=== PATIENT | male | born 1995 | race Caucasian/White ===

== ENCOUNTER → 2017-10-07 | Outpatient (CLI) | payer BC ==
[~2017-10-07] MED LIST: ACET300T3 PO; GADAVIST IV PRN
--- NOTE | 2017-10-07 10:14 | DIAGNOSTIC IMAGING REPORT ---
PELVIC COMBO CLINICAL HISTORY: 22 years-old Male presenting with LEFT SIDE, LYTIC LESION, ATTN:[facility] PELVIS AREA. TECHNIQUE: Multisequence, multiplanar MR imaging of the pelvis was performed before and after the administration of intravenous contrast. IV contrast: 8 mL of Gadavist. COMPARISON: Plain radiographs from 09/26/2017. FINDINGS: Localizer images: Unremarkable. No bowel obstruction. No free fluid in the pelvis. Bladder decompressed. Normal prostate and seminal vesicles. No lymphadenopathy. Patent vasculature. Lower abdominal wall normal. Normal muscle bulk and muscle signal intensity. Normal bone marrow signal intensity. No evidence of a focal lesion. Hip joints grossly normal allowing for the nondedicated exam. IMPRESSION: Normal contrast-enhanced MR of the pelvis. No osseous lesion. Electronically signed by: Param Maciel M.D. 10/07/2017 10:13 AM Dictated Date/Time: 10/07/2017 10:08 AM
== END | disposition home or self-care (01) ==
LOC: C.MRIBC 08:19
PROVIDERS: ATTEND Orthopaedic Surgery
DX: L98.9 Disorder of the skin and subcutaneous tissue, unspecified (principal); M25.552 Pain in left hip